=== PATIENT | male | born 1955 | race Caucasian/White ===

== ENCOUNTER 2024-04-14 11:34 | Inpatient (IN) | payer OTHER ==
[~2024-04-14] VITALS: Ht 170.2 cm; Wt 69.9 kg
[2024-04-14] VITALS (23 sets, daily range): BP systolic 84–132; BP diastolic 59–86; PULSE 64–90; RESP 15–25; TEMP 36.6696–36.9474; O2SAT 93–100
[2024-04-14] MEDS: NOREPINEPHRINE 8MG/250ML PMX 250 ML IV ONE (11:59)
[2024-04-14] MEDS: SODIUM CHLORIDE 0.9% 1,000 ML IV ONE (11:59)
[2024-04-14 12:08] LABS: BASOPHILS % 0.6 % (0.0-2.0); EOSINOPHILS % 0.8 % (0.0-5.0); HEMATOCRIT. 36.4 % (42.0-52.0); HEMOGLOBIN. 11.8 g/dL (14.0-18.0); LYMPHOCYTES % 45.6 % (20.0-50.0); MEAN CORPUSCULAR HEMOGLOBIN 29.8 pg (28.0-32.0); MEAN CORPUSCULAR HGB CONC 32.3 g/dL (31.0-37.0); MEAN CORPUSCULAR VOLUME 92.3 fL (80.0-94.0); MEAN PLATELET VOLUME 7.2 fl (7.4-10.4); MONOCYTES % 11.9 % (2.0-8.0); NEUTROPHILS % 41.1 % (40.0-76.0); PLATELET 181 x1000/uL (130-400); RED BLOOD CELL COUNT 3.94 mill/uL (4.7-6.1); RED CELL DISTRIBUTION WIDTH 14.6 % (11.6-14.6); WHITE BLOOD COUNT 6.5 x1000/uL (4.5-11.0)
[2024-04-14 12:14] LABS: CHLORIDE 111 mEq/L (98-107); POTASSIUM 3.5 mEq/L (3.5-5.1); SODIUM 144 mEq/L (136-145)
[2024-04-14 12:15] LABS: CALCIUM 9.1 mg/dL (8.7-10.4); CARBON DIOXIDE 19 mEq/L (21-32)
[2024-04-14 12:20] LABS: CREATININE 1.3 mg/dL (0.6-1.3); GLUCOSE 211 mg/dL (70-105); UREA NITROGEN BLOOD 16 mg/dL (9-23)
[2024-04-14 12:26] LABS: TROPONIN I HIGH SENSITIVITY 189 ng/L (3.0-53)
[2024-04-14 12:28] LABS: LACTIC ACID 7.5 mmol/L (0.4-2.0)
[2024-04-14] MEDS ORDERED: HEPARIN 25,000 UNITS PREMIX 250 ML IV ONE (12:45)
[2024-04-14] MEDS ORDERED: HEPARIN 5000 UNITS/ML VIAL IV ONE (12:45)
[2024-04-14 13:14] LABS: INR 1.1; PARTIAL THROMBOPLASTIN TIME 25.1 sec (23.4-31.0)
[2024-04-14] MEDS: HEPARIN 80 UNITS/KG BOLUS IV SCH (13:15)
[2024-04-14] MEDS: HEPARIN 25,000 UNITS PREMIX 250 ML IV SCH (13:15)
[2024-04-14] MEDS: IOHEXOL-350 100 ML BOTTLE ONE (13:35)
[2024-04-14] MEDS ORDERED: IODIXANOL 320MG/ML 100 ML BOTTLE IV ONE ×2 (14:10→15:54)
[2024-04-14] MEDS ORDERED: LIDOCAINE HCL 1% 20ML VIAL ONE ×2 (14:10→14:25)
[2024-04-14] MEDS ORDERED: HEPARIN 1000 UNITS/ML 10ML ONE (14:10)
[2024-04-14] MEDS ORDERED: MIDAZOLAM HCL 2 MG/2 ML VIAL ONE (15:14)
[2024-04-14] MEDS ORDERED: FENTANYL CITRATE/PF 50MCG/ML 2ML VIAL ONE (15:14)
[2024-04-14] MEDS ORDERED: ACETAMINOPHEN 325MG TABLET PO PRN (16:15)
[2024-04-14] MEDS ORDERED: HYDRALAZINE 20MG/ML VIAL IV PRN (16:15)
[2024-04-14] MEDS ORDERED: DEXTROSE 50% WATER 50ML SYRINGE IV PRN (16:15)
[2024-04-14] MEDS ORDERED: IPRATROPIUM/ALBUTEROL 0.5-3(2.5)MG/3ML NEB HHN PRN (16:15)
[2024-04-14] MEDS: INSULIN LISPRO 100 UNITS/ML SUBCUT SCH (17:00)
[2024-04-14] MEDS: BLOOD SUGAR DIAGNOSTIC STRIP TEST SCH (17:01)
[2024-04-14] MEDS ORDERED: SIMV10TA97 MT (17:41)
[2024-04-14] MEDS ORDERED: METO-396 MT (17:41)
[2024-04-14] MEDS ORDERED: [UNRECOGNIZED DRUG - CODE] (17:41)
[2024-04-14] MEDS ORDERED: DOXY150T8 MT (17:41)
[2024-04-14] MEDS ORDERED: LEVO125T MT (17:41)
[2024-04-14] MEDS ORDERED: CYAN250T3 MT (17:41)
[2024-04-14] MEDS ORDERED: IRBE150T34 MT (17:41)
[2024-04-14] MEDS ORDERED: CHOL2000 (17:41)
[2024-04-14] MEDS ORDERED: IMIT50 MT (17:41)
[2024-04-14] MEDS ORDERED: FENO135C MT (17:41)
[2024-04-14 17:42] LABS: IRON 54 ug/dL (65-175)
[2024-04-14 17:45] LABS: TOTAL IRON BINDING CAPACITY 311 ug/dl (250-425)
[2024-04-14 17:49] LABS: FERRITIN 125 ng/mL (22-322); FOLIC ACID (FOLATE) SERUM > 20.00 ng/mL (>5.38)
[2024-04-14 17:57] LABS: VITAMIN B12 SERUM > 2000 pg/mL (211-911)
[2024-04-14] MEDS ORDERED: HEPARIN BOLUS PRN aPTT <36 IV (19:30)
[2024-04-15] VITALS (28 sets, daily range): BP systolic 89–142; BP diastolic 52–77; PULSE 60–74; RESP 12–24; TEMP 36.6696–37.00296; O2SAT 92–99
[2024-04-15 05:36] LABS: BASOPHILS % 0.5 % (0.0-2.0); EOSINOPHILS % 0.1 % (0.0-5.0); HEMOGLOBIN. 10.1 g/dL (14.0-18.0); LYMPHOCYTES % 22.6 % (20.0-50.0); MEAN CORPUSCULAR HEMOGLOBIN 29.7 pg (28.0-32.0); MEAN CORPUSCULAR HGB CONC 33.8 g/dL (31.0-37.0); MEAN CORPUSCULAR VOLUME 88.1 fL (80.0-94.0); MEAN PLATELET VOLUME 7.6 fl (7.4-10.4); MONOCYTES % 12.8 % (2.0-8.0); PLATELET 151 x1000/uL (130-400); RED CELL DISTRIBUTION WIDTH 13.9 % (11.6-14.6)
[2024-04-15 05:38] LABS: CHLORIDE 113 mEq/L (98-107); POTASSIUM 3.6 mEq/L (3.5-5.1); SODIUM 144 mEq/L (136-145)
[2024-04-15 05:39] LABS: CALCIUM 8.6 mg/dL (8.7-10.4); CARBON DIOXIDE 25 mEq/L (21-32)
[2024-04-15 05:44] LABS: CREATININE 0.9 mg/dL (0.6-1.3); GLUCOSE 106 mg/dL (70-105); TRIGLYCERIDE 108 mg/dL (0-150); UREA NITROGEN BLOOD 17 mg/dL (9-23)
[2024-04-15 05:45] LABS: CREATINE KINASE MB FRACTION 17.4 ng/mL (0.5-3.6); LDL CHOLESTEROL 54 mg/dL (5-100)
[2024-04-15 05:46] LABS: ALANINE AMINOTRANSFERASE 51 IU/L (10-49); ALBUMIN 3.5 g/dL (3.2-4.8); ASPARTATE AMINOTRANSFERASE 64 IU/L (<34); CHOLESTEROL 101 mg/dL (<200); HDL CHOLESTEROL 31 mg/dL (>55)
[2024-04-15 05:47] LABS: ALBUMIN 3.4 g/dL (3.2-4.8); BILIRUBIN DIRECT 0.1 mg/dL (<=3.0); BILIRUBIN TOTAL 0.3 mg/dL (0.1-1.0); PHOSPHORUS 2.5 mg/dL (2.5-4.9); PROTEIN TOTAL 5.6 g/dL (6.0-8.3)
[2024-04-15 05:49] LABS: T4 FREE 1.11 ng/dL (0.89-1.76); THYROID STIMULATING HORMONE 0.44 uIU/mL (0.55-4.78)
[2024-04-15] MEDS: MAGNESIUM 2 G PREMIX 50 ML IV NR (10:58)
[2024-04-15] MEDS: HEPARIN BOLUS PRN aPTT 37-44 IV (10:58)
[2024-04-15] MEDS: METOPROLOL SUCCINATE 50MG ER TABLET PO NR (16:07)
[2024-04-15] MEDS: METOPROLOL SUCCINATE 25MG ER TABLET PO SCH (16:09)
[2024-04-15] MEDS: APIXABAN 5 MG TABLET PO SCH (21:02)
[2024-04-16] VITALS (33 sets, daily range): BP systolic 97–146; BP diastolic 41–81; PULSE 55–77; RESP 8–24; TEMP 36.78072–36.89184; O2SAT 95–99
[2024-04-16 05:45] LABS: CHLORIDE 112 mEq/L (98-107); POTASSIUM 3.7 mEq/L (3.5-5.1); SODIUM 143 mEq/L (136-145)
[2024-04-16 05:46] LABS: CALCIUM 8.7 mg/dL (8.7-10.4); CARBON DIOXIDE 25 mEq/L (21-32)
[2024-04-16 05:51] LABS: CREATININE 0.8 mg/dL (0.6-1.3); GLUCOSE 96 mg/dL (70-105); UREA NITROGEN BLOOD 17 mg/dL (9-23)
[2024-04-16 05:53] LABS: BASOPHILS % 0.3 % (0.0-2.0); EOSINOPHILS % 1.3 % (0.0-5.0); HEMATOCRIT. 29.7 % (42.0-52.0); HEMOGLOBIN. 10.3 g/dL (14.0-18.0); LYMPHOCYTES % 24.2 % (20.0-50.0); MEAN CORPUSCULAR HEMOGLOBIN 30.4 pg (28.0-32.0); MEAN CORPUSCULAR HGB CONC 34.5 g/dL (31.0-37.0); MEAN CORPUSCULAR VOLUME 88.1 fL (80.0-94.0); MEAN PLATELET VOLUME 7.5 fl (7.4-10.4); MONOCYTES % 11.4 % (2.0-8.0); NEUTROPHILS % 62.8 % (40.0-76.0); PLATELET 176 x1000/uL (130-400); RED BLOOD CELL COUNT 3.37 mill/uL (4.7-6.1); RED CELL DISTRIBUTION WIDTH 13.8 % (11.6-14.6); WHITE BLOOD COUNT 6.2 x1000/uL (4.5-11.0)
[2024-04-16] MEDS: PANTOPRAZOLE 40MG DR TABLET PO SCH (06:07)
[2024-04-16] MEDS: LEVOTHYROXINE SODIUM 125MCG TABLET PO SCH (06:07)
[2024-04-16] MEDS ORDERED: APIX5TAB PO (12:11)
== END 2024-04-16 16:00 | disposition home or self-care (01) | DRG 163 ==
LOC: ER 11:34 → EDBEDREQ 11:49 → MICUSO 13:25 → EDBEDREQTM 13:29 → EDBEDREQ 13:29
PROVIDERS: ADMIT Internal Medicine; ATTEND Internal Medicine
PROC: 02CR3ZZ Extirpation of Matter from Left Pulmonary Artery, Percutaneous Approach (ICD-10-PCS; principal; 2024-04-14)
PROC: B31TYZZ Fluoroscopy of Left Pulmonary Artery using Other Contrast (ICD-10-PCS; 2024-04-14)
PROC: B31SYZZ Fluoroscopy of Right Pulmonary Artery using Other Contrast (ICD-10-PCS; 2024-04-14)
PROC: 4A023N6 Measurement of Cardiac Sampling and Pressure, Right Heart, Percutaneous Approach (ICD-10-PCS; 2024-04-14)
PROC: B51BYZZ Fluoroscopy of Right Lower Extremity Veins using Other Contrast (ICD-10-PCS; 2024-04-14)
DX: I26.92 Saddle embolus of pulmonary artery without acute cor pulmonale (principal); J96.01 Acute respiratory failure with hypoxia; E87.20 Acidosis, unspecified; R57.9 Shock, unspecified; D64.9 Anemia, unspecified; E78.5 Hyperlipidemia, unspecified; I10 Essential (primary) hypertension; E05.90 Thyrotoxicosis, unspecified without thyrotoxic crisis or storm; E11.65 Type 2 diabetes mellitus with hyperglycemia; Z79.01 Long term (current) use of anticoagulants; Z83.2 Family history of diseases of the blood and blood-forming organs and certain disorders involving the immune mechanism
CPT/HCPCS: 36415; 37184; 37185; 71045; 71275; 75743; 80048; 80061; 80076; 82040; 82306; 82550; 82553; 82607; 82728; 82746; 82962; 83036; 83540; 83550; 83605; 83735; 83880; 84100; 84439; 84443; 84484; 85025; 85347; 85379; 93005; 93306; 93970; 99291; C1769; C1887; C1893; J1644; J2250; J3010; J3475; J3490; J7030; Q9967; C1757